=== PATIENT | female | born 1970 | race Caucasian/White ===

== ENCOUNTER 2020-08-31 12:01 | Emergency (ER) | payer OTHER ==
[2020-08-31 12:30] VITALS: BP 120/88
--- NOTE | 2020-08-31 12:45 | ER Document Report ---
ED Medical Screen (RME) - General Chief Complaint: Other Stated Complaint: SOMETHING "STUCK" IN ESOPHAGUS Time Seen by Provider: 08/31/20 12:32 Mode of Arrival: Ambulatory Information source: Patient Notes: 50-year-old female presented to ED for complaint of meat lodged in her throat since 2 PM yesterday. She states she was eating pulled pork and then a third afterwards. She states she has had 2 carbonated drinks today with no difficulty swallowing no nausea no vomiting. She states it feels like she still has a full bolus in her esophagus. She does not smoke she is a former smoker she drinks socially and does not use any illicit drugs. She does have a history of Endo in the past hypothyroid taking Synthroid a clavicular fracture on the right and level of with some wisdom teeth. She is alert oriented respirations regular nonlabored speaking in full sentences. - HPI Onset: Yesterday Onset/Duration: Persistent Quality of pain: No pain, Other - She has pressured no pain in her esophagus Severity: None Pain Level: Denies Associated Symptoms: None Exacerbated by: Denies Relieved by: Denies Similar symptoms previously: No Recently seen / treated by doctor: No - Related Data Smoking: Quit greater than 1 year Frequency of alcohol use: Social Drug Abuse: None Allergies/Adverse Reactions: No Known Allergies Allergy (Verified 08/31/20 12:49) Past Medical History - General Information source: Patient - Social History Cigarette use (# per day): No Frequency of alcohol use: Social Drug Abuse: None Lives with: Family Family history: Reviewed & Not Pertinent - Past Medical History Cardiac Medical History: Reports: None Pulmonary Medical History: Reports: None EENT Medical History: Reports: None Neurological Medical History: Reports: None Endocrine Medical History: Reports: None, Hx Hypothyroidism Renal/ Medical History: Reports: None Malignancy Medical History: Reports: None GI Medical History: Reports: Hx Endoscopy Musculoskeltal Medical History: Reports Hx Musculoskeletal Trauma Skin Medical History: Reports None Psychiatric Medical History: Reports: None Traumatic Medical History: Reports: Hx Fractures - Right clavicle Infectious Medical History: Reports: None Past Surgical History: Reports: Hx Oral Surgery - [place] teeth - Immunizations Immunizations up to date: No Hx Diphtheria, Pertussis, Tetanus Vaccination: No History of Pneumococcal Vaccine: No History of Influenza Vaccine for 08/2019 - 01/2020 Season: No Review of Systems - Review of Systems Constitutional: No symptoms reported EENT: Other - Pressure in her esophagus from she thinks she still has a full bolus Cardiovascular: No symptoms reported Respiratory: No symptoms reported Gastrointestinal: No symptoms reported Genitourinary: No symptoms reported Female Genitourinary: No symptoms reported Musculoskeletal: No symptoms reported Skin: No symptoms reported Hematologic/Lymphatic: No symptoms reported Neurological/Psychological: No symptoms reported -: Yes All other systems reviewed and negative Physical Exam - Vital signs Vitals: Temp Pulse Resp BP Pulse Ox 98.6 F 72 16 120/88 H 98 08/31/20 12:28 08/31/20 12:28 08/31/20 12:28 08/31/20 12:28 08/31/20 12:28 Interpretation: Normal - General General appearance: Appears well, Alert - HEENT Head: Normocephalic, Atraumatic Eyes: Normal Pupils: PERRL - Respiratory Respiratory status: No respiratory distress Chest status: Nontender Breath sounds: Normal Chest palpation: Normal - Cardiovascular Rhythm: Regular Heart sounds: Normal auscultation Murmur: No - Abdominal Inspection: Normal Distension: No distension Bowel sounds: Normal Tenderness: Nontender Organomegaly: No organomegaly - Back Back: Normal, Nontender - Extremities General upper extremity: Normal inspection, Nontender, Normal color, Normal ROM, Normal temperature General lower extremity: Normal inspection, Nontender, Normal color, Normal ROM, Normal temperature, Normal weight bearing. No: Francesca's sign - Neurological Neuro grossly intact: Yes Cognition: Normal Orientation: AAOx4 Curtis Coma Scale Eye Opening: Spontaneous Bronaugh Coma Scale Verbal: Oriented Bronaugh Coma Scale Motor: Obeys Commands Curtis Coma Scale Total: 15 Speech: Normal Motor strength normal: LUE, RUE, LLE, RLE Sensory: Normal - Psychological Associated symptoms: Normal affect, Normal mood - Skin Skin Temperature: Warm Skin Moisture: Dry Skin Color: Normal Course - Re-evaluation Re-evalutation: 08/31/20 13:[address] Price sending the sensation of stuck food in her esophagus. We did a soft tissue neck and chest x-ray both which did not show any foreign body. Patient was encouraged to quit continue eating and drinking if she has any increase in sensation to return to the ED otherwise follow-up with gastroenterology. She needs a follow-up as soon as possible. She did verbalize understanding and agreement with this treatment plan patient was given the name and number of Dr. Penny Chavez and Fuad to call tomorrow to schedule follow-up appointment. - Vital Signs Vital signs: Temp Pulse Resp BP Pulse Ox 98.6 F 72 16 120/88 H 98 08/31/20 12:28 08/31/20 12:28 08/31/20 12:28 08/31/20 12:28 08/31/20 12:28 - Diagnostic Test Radiology reviewed: Image reviewed, Reports reviewed Doctor's Discharge - Discharge Clinical Impression: Possible food bolus Condition: Stable Disposition: HOME, SELF-CARE Additional Instructions: You were seen today because she felt like something was stuck in your throat. You were able to drink fluids with no difficulty Able to eat and have eaten since you felt the feeling of something stuck in your throat. You develop where you cannot eat drink swallow without difficulty please follow- up with the ER. Otherwise please call gastroenterology in the morning to schedule follow-up visit. Given you the name and number of to alterations expert local as you states she lives in [place]. FOLLOW-UP CARE: If you have been referred to a physician for follow-up care, call the physicians office for an appointment as you were instructed or within the next two days. If you experience worsening or a significant change in your symptoms, notify the physician immediately or return to the Emergency Department at any time for re-evaluation. Forms: Elevated Blood Pressure Referrals: CM HUTCHINS MD [ACTIVE STAFF] - Follow up as needed ZIYAD CHAVEZ MD [ACTIVE STAFF] - Follow up as needed PAL MAC MD [ACTIVE STAFF] - Follow up as needed
--- NOTE | 2020-08-31 13:17 | RADIOLOGY REPORT (SQ) ---
EXAM DESCRIPTION: SOFT TISSUE NECK IMAGES COMPLETED DATE/TIME: 08/31/2020 11:56 am REASON FOR STUDY: Feels like she has food bolus stuck in throat COMPARISON: None. NUMBER OF VIEWS: Two views. TECHNIQUE: AP and lateral radiographic image of the soft tissues of the neck. LIMITATIONS: None. FINDINGS: EPIGLOTTIS: Normal. Contour normal. Aryepiglottic folds normal. PREVERTEBRAL SOFT TISSUES: Normal. No soft tissue swelling. SUBGLOTTIC AREA: Normal. No narrowing. RETROPHARYNGEAL SPACE: Normal. No soft tissue masses. BONES: No significant findings. LUNG APICES: Normal. OTHER: No radiopaque foreign body. No other significant finding. IMPRESSION: NEGATIVE STUDY OF THE SOFT TISSUES OF THE NECK. TECHNICAL DOCUMENTATION: JOB ID: [id number] 2010 [employer]- All Rights Reserved Reading location - IP/workstation name: [email or web address]
--- NOTE | 2020-08-31 13:18 | RADIOLOGY REPORT (SQ) ---
EXAM DESCRIPTION: CHEST 2 VIEWS IMAGES COMPLETED DATE/TIME: 08/31/2020 11:56 am REASON FOR STUDY: Feels like she has food bolus stuck in throat COMPARISON: None. EXAM PARAMETERS: NUMBER OF VIEWS: two views TECHNIQUE: Digital Frontal and Lateral radiographic views of the chest acquired. RADIATION DOSE: NA LIMITATIONS: none FINDINGS: LUNGS AND PLEURA: No opacities, masses or pneumothorax. No pleural effusion. MEDIASTINUM AND HILAR STRUCTURES: No masses or contour abnormalities. HEART AND VASCULAR STRUCTURES: Heart normal size. No evidence for failure. BONES: No acute findings. HARDWARE: None in the chest. OTHER: No other significant finding. IMPRESSION: NO ACUTE RADIOGRAPHIC FINDING IN THE CHEST. TECHNICAL DOCUMENTATION: JOB ID: [id number] 2010 [employer]- All Rights Reserved Reading location - IP/workstation name: [email or web address]
== END 2020-08-31 13:38 | disposition home or self-care (01) ==
LOC: ER 12:01
DX: R09.89 Other specified symptoms and signs involving the circulatory and respiratory systems (principal)
CPT/HCPCS: 70360; 71046; 99284